=== PATIENT | male | born 1985 | race Caucasian/White ===

== ENCOUNTER 2018-07-29 14:00 | Emergency (ER) | payer OTHER ==
[2018-07-29 14:24] VITALS: TEMP 97.6; BMI 32.5
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
[2018-07-29] MEDS ORDERED: KETOROLAC TROMETHAMINE 30 MG/1 ML VIAL IM ONE ×2 (15:46→16:38)
[2018-07-29] MEDS ORDERED: KETOROLAC TROMETHAMINE 30 MG/1 ML VIAL ONE (16:38)
[2018-07-29] MEDS ORDERED: diazePAM 2 MG TABLET PO ONE (16:38)
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
[2018-07-29] MEDS ORDERED: diazePAM 2 MG TABLET ONE (17:09)
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
[2018-07-29 17:33] VITALS: BP 137/95; PULSE 79
== END 2018-07-29 17:33 | disposition home or self-care (01) ==
LOC: JER 14:00
PROC: 3E0233Z Introduction of Anti-inflammatory into Muscle, Percutaneous Approach (ICD-10-PCS; principal; 2018-07-29)
DX: S16.1XXA Strain of muscle, fascia and tendon at neck level, initial encounter (principal); V44.5XXA Car driver injured in collision with heavy transport vehicle or bus in traffic accident, initial encounter; Y92.488 Other paved roadways as the place of occurrence of the external cause; Y93.89 Activity, other specified; Y99.8 Other external cause status
CPT/HCPCS: 70450-TC; 72125-TC; 99283-25